=== PATIENT | female | born 1955 | race Caucasian/White ===

== ENCOUNTER → 2017-02-22 | Outpatient (CLI) | payer OTHER | LOC: LAB 15:27 | DX: R30.0 Dysuria (principal) | CPT/HCPCS: 87077; 87086; 87186 ==

== ENCOUNTER → 2017-08-01 | Outpatient (CLI) | payer OTHER | LOC: CT 10:30 | DX: I82.90 Acute embolism and thrombosis of unspecified vein (principal) | CPT/HCPCS: 36415; 74175; 82565; 84520; J7050; Q9965 ==